=== PATIENT | male | born 1995 | race Caucasian/White ===

== ENCOUNTER 2017-09-06 10:11 | Emergency (ER) | payer BC ==
[~2017-09-06] VITALS: Ht 180.3 cm; Wt 71.0 kg
[2017-09-06 10:13] VITALS: Ht 180.3 cm; Wt 71.0 kg
[2017-09-06] MEDS ORDERED: LIDOCAINE/EPINEPH/TETRACAINE 1 EA SYR ONE (11:07)
--- NOTE | 2017-09-06 11:26 | EMERGENCY ROOM VISIT NOTE ---
ED Visit Note First contact with patient: 10:30 CHIEF COMPLAINT: Lip laceration HISTORY OF PRESENT ILLNESS: This 21-year-old male patient presents emergency department by private vehicle complaining of a laceration to the left lower lip that occurred approximately 30 minutes ago. Patient states that he was playing Ultimate Frisbee, states he was struck in the lip by the Frisbee. There was no loss of consciousness, vomiting, or unusual behavior afterwards. Denies neck pain. No headache, nausea, or blurred vision. There is minimal bleeding. The patient rates the pain as throbbing and to/10. The patient's tetanus shot is up to date. He denies any other associated injuries. He denies any chipped or broken teeth, or bleeding from the mouth. REVIEW OF SYSTEMS: A 6 system review of systems was completed with positives and pertinent negatives listed in the HPI. ALLERGIES: No known allergies. MEDICATIONS: No medications. PMH: No significant past medical or surgical history. Up-to-date on immunizations per SOCIAL HISTORY: Lives at home. He is a college student at [employer]. He denies tobacco use. PHYSICAL EXAM: Vital Signs: Reviewed Nurse's notes, vital signs stable. GENERAL : Pleasant and cooperative, in no acute distress, well-developed, well- nourished. NEURO: The patient is alert and oriented to person place and time. No focal neurological defects. EYES: Pupils are round, equal, and react to light. EOMI. EARS: No hemotympanum. NECK: Supple. No cervical spine tenderness. FACE: No facial bone tenderness or mandibular tenderness. The mouth can open fully. The teeth are well aligned. No loose or chipped teeth. SKIN: There is a 1.5 cm laceration on the lower left lip, with extension through the vermilion border. The edges gape apart with traction. There is mild active bleeding, no foreign material in the wound. There are no deep structures present. The wound is not through and through to the oral mucosa. Capillary refill less than two seconds. Normal sensation to light and sharp touch. EMERGENCY DEPARTMENT COURSE: I examined the patient. Verbal consent was obtained to perform the procedure. Using sterile technique the wound was cleansed with Betadine. The area was sterilely draped. LET gel was used to anesthetize the laceration on the face. Once the patient was anesthetized, the wound was copiously irrigated under pressure with sterile saline. The wound was explored and was as described above. The laceration was repaired using 4 subcuticular sutures with 6-0 vicryl, and the wound edges were then closed with Dermabond, with the wound edges being well approximated. There was good alignment of the shadia border. The patient tolerated the procedure well. Hemostasis was achieved. Patient was educated regarding wound care, follow-up, and return precautions, he verbalized understanding. The patient was discharged home in good condition and ambulatory. Current/Historical Medications No Active Prescriptions or Reported Meds Allergies Coded Allergies: No Known Allergies (Unverified , 09/06/17) Vital Signs Date Time Temp Pulse Resp B/P (MAP) Pulse Ox O2 Delivery O2 Flow Rate FiO2 09/06/17 12:49 37.2 93 18 128/80 97 09/06/17 12:48 93 18 128/80 97 Room Air 09/06/17 11:45 37.2 97 18 128/81 95 Room Air 09/06/17 10:13 37.6 101 18 132/80 95 Room Air Medications Administered Medications (Trade) Dose Ordered Sig/Diamante Route Start Time Stop Time Status Last Admin Dose Admin Tetracaine/ Epinephrine/ Lidocaine (L.e.t. Gel 4%/ 1:100/0.5%) 1 ea STK-MED ONCE .ROUTE 09/06/17 11:07 09/06/17 11:08 DC 09/06/17 11:08 1 EA Departure Information Impression Primary Impression: Lip laceration Dispostion Home / Self-Care Condition GOOD Prescriptions No Active Prescriptions or Reported Meds Referrals No Doctor, Assigned (PCP) Patient Instructions ED Laceration Facial Skin Glue, ED Laceration Mouth, My [facility] Additional Instructions You have been evaluated and treated in the emergency department for your lip laceration. Your laceration was closed with dissolving sutures and skin glue. The glue should fall off naturally over the next 5-7 days. Keep wound clean and dry. Do not apply any lotions or ointments over the glue, as this may dissolve prematurely. You may gently wash with soap and water, pat dry. Do not submerge the wound under water until the wound has fully healed. You may apply cold compresses to help reduce swelling and pain. Ibuprofen 600 mg and Tylenol 1000 mg every 6-8 hours as needed for pain. As with all lacerations, there may be temporary or permanent nerve damage or scarring. Keep covered when in sun until sutures removed then SPF 50 or higher for one year. Vitamin E oil if desired two weeks after suture removal for reduction of scar. Please seek immediate medical attention for any signs of infection (increasing redness, swelling, pus drainage, streaking up the arm, fever/chills). Problem Qualifiers Primary Impression: Lip laceration Encounter type: initial encounter Qualified Codes: S01.511A - Laceration without foreign body of lip, initial encounter
[2017-09-06 12:49] VITALS: BP 128/80; PULSE 93; TEMP 37.2; O2SAT 97
== END 2017-09-06 12:50 | disposition home or self-care (01) ==
LOC: C.EDB 10:14 → C.EDC 12:50
DX: S01.511A Laceration without foreign body of lip, initial encounter (principal); W21.9XXA Striking against or struck by unspecified sports equipment, initial encounter; Y93.74 Activity, frisbee